=== PATIENT | female | born 1995 | race American Indian/Alaskan Native ===

== ENCOUNTER 2019-03-31 17:07 | Emergency (ER) | payer MEDICAID ==
--- NOTE | 2019-03-31 17:38 | Event Note ---
ED Screening Note Date of service: 03/31/19 Time: 17:35 ED Screening Note: This is a 23 y.o. dysuria, urinary frequency, and hematuria x 2 weeks. Currently 12 weeks . Followed by [facility] at [facility]. Denies abdominal pain. This initial assessment/diagnostic orders/clinical plan/treatment(s) is/are subject to change based on patients health status, clinical progression and re- assessment by fellow clinical providers in the ED. Further treatment and workup at subsequent clinical providers discretion. Patient/guardian urged not to elope from the ED as their condition may be serious if not clinically assessed and managed. Initial orders include: labs ACC for further evaluation.
[2019-03-31 18:15] LABS: Bilirubin,Urine NEG (Negative); Blood,Urine NEG (Negative); Color,Urine Yellow (Yellow); HCG Qualitative,Urine Positive (Negative); Mucus,Urine FEW /HPF; Urobilinogen,Urine < 2.0 mg/dL (<2.0)
[2019-03-31 18:16] LABS: WBC,Urine > 182.0 /HPF (0.0-6.0)
--- NOTE | 2019-03-31 21:56 | Emergency Department Report ---
ED Abdominal Pain HPI - General Chief Complaint: Urogenital-Female Stated Complaint: UTI Time Seen by Provider: 03/31/19 17:34 Source: patient Mode of arrival: Ambulatory Limitations: No Limitations - History of Present Illness Initial Comments: This is a 23-year-old female here report that she has a urinary tract infection and states before that he is having some blood in her urine . Patient reported to triage that she was having pelvic pain but reports to me that she is not having any pelvic pain. She did admit that she complaining of pelvic pain in triage. Patient reports that this started about a week ago and she has been seen by her [facility]RICUL[facility] DEVELOPMENT SPECIALIST and ultrasound was done about a week ago. She reports that she is 3 months and no problems with . She is taking vitamin. She said the plugs in her urine and not coming from her vaginal area. She reports that her CURRICULUM DEVELOPMENT SPECIALIST is aware of this. She states she was recently treated with suppositories for yeast infection but she still having use infection with itching and. Denies any fever or chills or nausea or vomiting. Denies any back pain, chest pain or shortness of breath. MD Complaint: other (urinary tract infection and yeast infection with blood and urine) Onset/Timin -: week(s) Severity scale (0 -10): 0 Associated Symptoms: dysuria, hematuria. denies: nausea, vomiting, diarrhea, fever, chills, constipation, hematemesis, hematochezia, melena, anorexia, syncope - Related Data LMP (females 10-50): Previous Rx's Medication Instructions Recorded Last Taken Type Miconazole Nitrate [Monistat 3] 15 gm VG QHS 3 Days #3 crm.pf.kalie 03/31/19 Unknown Rx cephALEXin [Keflex] 500 mg PO Q12HR 7 Days #14 cap 03/31/19 Unknown Rx Allergies Allergy/AdvReac Type Severity Reaction Status Date / Time No Known Allergies Allergy Verified 03/31/19 17:39 ED Review of Systems ROS: Stated complaint: UTI Other details as noted in HPI Constitutional: denies: chills, fever Respiratory: denies: cough, shortness of breath Cardiovascular: denies: chest pain, palpitations Gastrointestinal: denies: abdominal pain, nausea, vomiting, diarrhea, constipation, hematemesis, hematochezia Genitourinary: dysuria, frequency, hematuria, discharge (report that she is having right clumpy vaginal discharge she is not concerned for STD. She got STD check by her CURRICULUM DEVELOPMENT SPECIALIST) Skin: denies: rash ED Past Medical Hx - Past Medical History Previous Medical History?: No - Surgical History Past Surgical History?: No - Family History Family history: no significant - Social History Smoking Status: Never Smoker Substance Use Type: None - Medications Home Medications: Home Medications Medication Instructions Recorded Confirmed Last Taken Type Miconazole Nitrate [Monistat 3] 15 gm VG QHS 3 Days #3 crm.pf.kalie 03/31/19 Unknown Rx cephALEXin [Keflex] 500 mg PO Q12HR 7 Days #14 cap 03/31/19 Unknown Rx ED Physical Exam - General Limitations: No Limitations General appearance: alert, in no apparent distress - Eye Eye exam: Present: normal appearance, PERRL, EOMI - ENT ENT exam: Present: normal exam, normal orophraynx, mucous membranes moist - Neck Neck exam: Present: normal inspection, full ROM. Absent: tenderness - Respiratory Respiratory exam: Present: normal lung sounds bilaterally. Absent: respiratory distress, chest wall tenderness - Cardiovascular Cardiovascular Exam: Present: regular rate, normal rhythm, normal heart sounds - GI/Abdominal GI/Abdominal exam: Present: soft, normal bowel sounds. Absent: distended, tenderness, guarding, rebound, rigid, organomegaly, mass - Extremities Exam Extremities exam: Present: full ROM, other (No cce. + 2 pulses in all extremities, no neurovascular compromise). Absent: pedal edema - Back Exam Back exam: Present: normal inspection, full ROM. Absent: CVA tenderness (R), CVA tenderness (L) - Neurological Exam Neurological exam: Present: alert, oriented X3, normal gait - Psychiatric Psychiatric exam: Present: normal affect, normal mood - Skin Skin exam: Present: warm, dry, intact, normal color. Absent: rash ED Course Vital Signs 03/31/19 03/31/19 17:35 22:33 Temperature 98.1 F Pulse Rate 84 90 Respiratory 16 18 Rate Blood Pressure 117/73 118/91 [Right] O2 Sat by Pulse 97 100 Oximetry - Reevaluation(s) Reevaluation #1: 03/31/19 22:04 Patient found to have acute cystitis in . She reported to triage provider that she was having blood in her urine along with pelvic pain and I o rdered CBC due to urinary tract infection and ultrasound due to report of pelvic pain and blood in her urine and patient refuses and agreed signed AMA for refusal labs, ultrasound. She does have [facility] DEVELOPMENT SPECIALIST and she says she had ultrasound last week and reported that she did tell them that she was having pelvic pain and blood in her urine in triage but she is really not having these symptoms. Patient is stable, vital signs stable. Denies any pain at present. She is afebrile. She says that she has been treated for yeast infection recently by her CURRICULUM DEVELOPMENT SPECIALIST with suppository but yeast infection . Keflex 500 mg to be started in emergency room. ED Medical Decision Making - Lab Data Lab Results 03/31/19 Range/Units 17:55 Urine Color Yellow (Yellow) Urine Turbidity Cloudy (Clear) Urine pH 8.0 H (5.0-7.0) Ur Specific Hersey 1.019 (1.003-1.030) Urine Protein 100 mg/dl (Negative) mg/dL Urine Glucose (UA) Neg (Negative) mg/dL Urine Ketones Neg (Negative) mg/dL Urine Blood Neg (Negative) Urine Nitrite Neg (Negative) Urine Bilirubin Neg (Negative) Urine Urobilinogen < 2.0 (<2.0) mg/dL Ur Leukocyte Esterase Lg (Negative) Urine WBC (Auto) > 182.0 H (0.0-6.0) /HPF Urine RBC (Auto) 33.0 (0.0-6.0) /HPF U Epithel Cells (Auto) 3.0 (0-13.0) /HPF Urine Mucus Few /HPF Urine Yeast (Budding) 1+ /HPF Urine HCG, Qual Positive A (Negative) Urine culture sent and pending - Medical Decision Making 22-year-old female here complaining of urinary tract infection with vaginal discharge. Urinalysis found to have but he needs a 1+ positive urinary tract infection. Patient reported that she was having abdominal pain with blood in her urine in triage area but she denies pelvic pain to me and her urine does not have any blood. I discussed the patient that if she reported that she is having pelvic pain in triage and denies to me and then blood in her urine does come in from her bladder areas and I need to do OB ultrasound on her but she refused and also refused lab work. She signed AMA for refusal of labs and ultrasound. Patient is stable. Vital signs stable I discussed further issues to call her CURRICULUM DEVELOPMENT SPECIALIST in 04/02/2019 for follow-up visit and let them know that she was in emergency room for treatment of urinary tract infection and yeast infection. Patient discharged home in stable condition with prescription for Keflex and Monistat suppository. She was understanding the discharge instructions and treatment plan. Critical care attestation.: If time is entered above; I have spent that time in minutes in the direct care of this critically ill patient, excluding procedure time. ED Disposition Clinical Impression: Refusal of treatment by patient, Yeast infection Acute cystitis during Qualifiers: Trimester: unspecified trimester Qualified Code(s): O23.10 - Infections of bladder in , unspecified trimester Disposition: TO HOME OR SELFCARE Is pt being admited?: No Does the pt Need Aspirin: No Condition: Stable Instructions: Urinary Tract Infection in Women (ED), Vaginitis (ED) Additional Instructions: Please increase her fluid intake to 2-3 L of water and/or cranberry juice daily Please follow-up with your CURRICULUM DEVELOPMENT SPECIALIST in 2 days. If you develop abdominal pain, vaginal bleeding, worsening symptoms, fever and/or chills, please return to emergency room MIGUELA You refused to have ultrasound and lab work done and please make sure he called the CURRICULUM DEVELOPMENT SPECIALIST on Tuesday for follow-up. Take medication as prescribed for yeast infection and also for urinary tract in fection Prescriptions: Miconazole Nitrate [Monistat 3] 15 gm VG QHS 3 Days #3 crm.pf.kalie cephALEXin [Keflex] 500 mg PO Q12HR 7 Days #14 cap Referrals: your, [facility] DEVELOPMENT SPECIALIST [Other] - 04/02/19 [facility] [Provider Group] - 04/02/19 Forms: AMA Form, Work/School Release Form(ED)
[2019-03-31] MEDS ORDERED: KEFLEX PO ONE (21:58)
[2019-03-31 22:33] VITALS: BP 118/91
== END 2019-03-31 22:34 | disposition home or self-care (01) ==
LOC: ED 17:07
DX: O23.11 Infections of bladder in pregnancy, first trimester (principal); O23.599 Infection of other part of genital tract in pregnancy, unspecified trimester; Z3A.12 12 weeks gestation of pregnancy; Z79.899 Other long term (current) drug therapy
CPT/HCPCS: 81001; 81025; 87076; 87086; 87186; 99283